=== PATIENT | female | born 1955 | race African-American/Black ===

== ENCOUNTER → 2017-06-02 | Outpatient (CLI) | payer MEDICARE, MEDICAID | END | disposition home or self-care (01) | LOC: MRI 11:41 | PROVIDERS: ATTEND Neurological Surgery | DX: M48.02 Spinal stenosis, cervical region (principal); M25.78 Osteophyte, vertebrae | CPT/HCPCS: 72141 ==

== ENCOUNTER → 2018-10-18 | Outpatient (CLI) | payer MEDICARE, MEDICAID | END | disposition home or self-care (01) | LOC: MRI 13:04 | PROVIDERS: ATTEND Neurological Surgery | DX: M48.02 Spinal stenosis, cervical region (principal); M48.061 Spinal stenosis, lumbar region without neurogenic claudication | CPT/HCPCS: 72141; 72148 ==

== ENCOUNTER → 2019-01-20 | Outpatient (CLI) | payer MEDICARE, MEDICAID | END | disposition home or self-care (01) | LOC: CT 09:43 | PROVIDERS: ATTEND Neurological Surgery | DX: M48.061 Spinal stenosis, lumbar region without neurogenic claudication (principal) | CPT/HCPCS: 72131 ==

== ENCOUNTER 2019-01-30 06:50 | Inpatient (IN) | payer MEDICARE, MEDICAID ==
[2019-01-30] VITALS (26 sets, daily range): BP systolic 76–146; BP diastolic 44–143
[~2019-01-30] VITALS: Ht 154.9 cm; Wt 67.1 kg
[2019-01-30] MEDS ORDERED: LACTATED RINGERS 1,000 ML IV SCH (07:30)
[2019-01-30] MEDS ORDERED: THROMBIN (BOVINE) 5000 UNITS/VIAL TOP ONE (07:55)
[2019-01-30] MEDS ORDERED: NORMAL SALINE 0.9% 10 ML SYR ONE (07:55)
[2019-01-30] MEDS ORDERED: LIDOCAINE HCL/EPINEPHRINE 1%-EPI 1:100,000 20 ML VIAL ONE (07:56)
[2019-01-30] MEDS ORDERED: BACITRACIN 50,000 UNITS/VIAL ONE (07:56)
[2019-01-30 08:12] LABS: CLARITY URINE CLOUDY (CLEAR); COLOR URINE YELLOW (YELLOW); KETONES URINE TRACE (NEGATIVE); LEUKOCYTE ESTERASE URINE 3+ (NEGATIVE); NITRITE URINE NEGATIVE (NEGATIVE); OCCULT BLOOD URINE 1+ (NEGATIVE); PROTEIN URINE NEGATIVE (NEGATIVE); SPECIFIC GRAVITY URINE 1.022 (1.005-1.030)
[2019-01-30 08:14] LABS: BASOPHILS % 0.4 % (0.0-2.0); EOSINOPHILS % 1.5 % (0.0-5.0); HEMATOCRIT. 39.3 % (36.0-48.0); HEMOGLOBIN. 13.4 g/dL (12.0-16.0); LYMPHOCYTES % 33.7 % (20.0-50.0); MEAN CORPUSCULAR HEMOGLOBIN 31.7 pg (28.0-32.0); MEAN PLATELET VOLUME 7.7 fl (7.4-10.4); MONOCYTES % 6.5 % (2.0-8.0); NEUTROPHILS % 57.9 % (40.0-76.0); PLATELET 395 x1000/uL (130-400); RED BLOOD CELL COUNT 4.22 mill/uL (4.2-5.4); RED CELL DISTRIBUTION WIDTH 14.7 % (11.6-14.6)
[2019-01-30 08:18] LABS: CHLORIDE 107 mEq/L (98-107)
[2019-01-30 08:19] LABS: PARTIAL THROMBOPLASTIN TIME 27.5 sec (23.4-31.0); PROTHROMBIN TIME 10.3 sec (9.6-11.0)
[2019-01-30] MEDS ORDERED: FENTANYL CITRATE/PF 50MCG/ML 2ML VIAL ONE (09:31)
[2019-01-30] MEDS ORDERED: MIDAZOLAM HCL 2 MG/2 ML VIAL ONE (09:31)
[2019-01-30] MEDS ORDERED: LIDOCAINE HCL/PF 1% 10 MG/ML 5ML VIAL ONE (09:33)
[2019-01-30] MEDS ORDERED: PROPOFOL 200MG/20ML VIAL IV ONE ×2 (09:33→12:03)
[2019-01-30] MEDS ORDERED: SUCCINYLCHOLINE CHLORIDE 200MG/10ML IV ONE (09:35)
[2019-01-30] MEDS ORDERED: ROCURONIUM BROMIDE 10MG/ML VIAL 5ML IV ONE ×2 (09:36→12:11)
[2019-01-30] MEDS ORDERED: SODIUM CHLORIDE 0.9% 10ML VIAL ONE ×2 (09:46→10:03)
[2019-01-30] MEDS ORDERED: EPHEDRINE SULFATE 50MG/ML VIAL ONE (09:46)
[2019-01-30 10:03] LABS: CLARITY URINE CLOUDY (CLEAR); COLOR URINE YELLOW (YELLOW); KETONES URINE TRACE (NEGATIVE); LEUKOCYTE ESTERASE URINE 3+ (NEGATIVE); NITRITE URINE NEGATIVE (NEGATIVE); OCCULT BLOOD URINE TRACE (NEGATIVE); PROTEIN URINE NEGATIVE (NEGATIVE); SPECIFIC GRAVITY URINE 1.015 (1.005-1.030); UROBILINOGEN URINE 0.2 E.U./dL (0.2-1.0)
[2019-01-30] MEDS ORDERED: CEFAZOLIN SODIUM 1000MG/VIAL ONE (10:03)
[2019-01-30] MEDS ORDERED: MULT-1146 PO (10:23)
[2019-01-30] MEDS ORDERED: DULO60CA44 PO (10:23)
[2019-01-30] MEDS ORDERED: HYDRALAZINE 20MG/ML VIAL IV PRN (10:45)
[2019-01-30] MEDS ORDERED: ONDANSETRON HCL 4MG/2ML INJ IV PRN (10:45)
[2019-01-30] MEDS ORDERED: DEXT 5%/LACTATED RINGERS 1,000 ML IV SCH (10:45)
[2019-01-30] MEDS ORDERED: GENTAMICIN SULF 40MG/ML 2ML VIAL ONE (12:04)
[2019-01-30] MEDS ORDERED: DEXAMETHASONE 4MG/ML 1ML VIAL ONE (12:06)
[2019-01-30] MEDS ORDERED: ONDANSETRON HCL 4MG/2ML INJ ONE (12:06)
[2019-01-30] MEDS ORDERED: GLYCOPYRROLATE 0.2 MG/ML 2ML VIAL ONE (13:34)
[2019-01-30] MEDS ORDERED: NICARDIPINE 100 MG in SODIUM CHLORIDE 0.9% 60 ML IV PRN (14:00)
[2019-01-30] MEDS ORDERED: CEFAZOLIN SODIUM 1000MG/VIAL IV SCH (14:00)
[2019-01-30] MEDS: MORPHINE SULFATE 4 MG/ML CPJ (NOT FOR IM USE) IV PRN ×2 (14:47→20:59)
[2019-01-30] MEDS ORDERED: NALOXONE INJ IV PRN (15:00)
[2019-01-30] MEDS: DEXT 5%/LACTATED RINGERS 1,000 ML IV SCH ×2 (15:00→21:25)
[2019-01-30] MEDS ORDERED: ONDANSETRON INJ IV PRN (15:00)
[2019-01-30] MEDS: HYDROMORPHONE PCA 10MG/50ML IV PRN (15:34)
[2019-01-30] MEDS ORDERED: BISACODYL 5MG TABLET PO PRN (16:30)
[2019-01-30] MEDS: CEFAZOLIN 1000MG PREMIX 50 ML IV SCH (17:17)
[2019-01-30] MEDS: DOCUSATE SODIUM 100MG CAPSULE PO SCH (17:17)
[2019-01-30] MEDS: DIPHENHYDRAMINE INJ IV PRN (18:14)
[2019-01-31] VITALS (54 sets, daily range): BP systolic 6–148; BP diastolic 6–129
[2019-01-31] MEDS: MORPHINE SULFATE 4 MG/ML CPJ (NOT FOR IM USE) IV PRN ×5 (00:01→20:55)
[2019-01-31] MEDS: CEFAZOLIN 1000MG PREMIX 50 ML IV SCH ×3 (00:02→16:04)
[2019-01-31] MEDS: DEXT 5%/LACTATED RINGERS 1,000 ML IV SCH ×3 (00:02→18:28)
[2019-01-31] MEDS: DIPHENHYDRAMINE INJ IV PRN (01:49)
[2019-01-31 05:48] LABS: BASOPHILS % 0.1 % (0.0-2.0); HEMATOCRIT. 34.7 % (36.0-48.0); HEMOGLOBIN. 11.5 g/dL (12.0-16.0); LYMPHOCYTES % 9.2 % (20.0-50.0); MEAN CORPUSCULAR HEMOGLOBIN 31.3 pg (28.0-32.0); MEAN CORPUSCULAR VOLUME 94.3 fL (81.0-99.0); MEAN PLATELET VOLUME 8.3 fl (7.4-10.4); NEUTROPHILS % 85.7 % (40.0-76.0); PLATELET 343 x1000/uL (130-400); RED BLOOD CELL COUNT 3.68 mill/uL (4.2-5.4); RED CELL DISTRIBUTION WIDTH 15.1 % (11.6-14.6)
[2019-01-31 05:53] LABS: CHLORIDE 107 mEq/L (98-107)
[2019-01-31 06:08] LABS: LDL CHOLESTEROL 155 mg/dL (5-100); PHOSPHORUS 3.6 mg/dL (2.5-4.9)
[2019-01-31 06:11] LABS: HDL CHOLESTEROL 37 mg/dL (40-59)
[2019-01-31] MEDS: ONDANSETRON HCL 4MG/2ML INJ IV PRN ×4 (09:32→20:12)
[2019-01-31] MEDS ORDERED: IPRATROPIUM/ALBUTEROL 0.5-3(2.5)MG/3ML NEB HHN PRN (09:45)
[2019-01-31] MEDS: DULOXETINE HCL 60MG DR CAPSULE PO SCH (14:20)
[2019-01-31] MEDS: DOCUSATE SODIUM 100MG CAPSULE PO SCH ×2 (14:20→17:00)
[2019-01-31] MEDS: HYDROMORPHONE PCA 10MG/50ML IV PRN (20:38)
[2019-02-01] VITALS: BP 111/55
[2019-02-01] MEDS: MORPHINE SULFATE 4 MG/ML CPJ (NOT FOR IM USE) IV PRN ×4 (01:11→15:39)
[2019-02-01] MEDS: CEFAZOLIN 1000MG PREMIX 50 ML IV SCH ×3 (01:11→16:23)
[2019-02-01] MEDS: HYDROCODONE/APAP 7.5/325MG 1 TAB TABLET PO PRN ×2 (01:12→21:03)
[2019-02-01] MEDS: ONDANSETRON HCL 4MG/2ML INJ IV PRN ×2 (01:13→21:03)
[2019-02-01 04:00] VITALS: BP 114/57
[2019-02-01 06:35] LABS: BASOPHILS % 0.3 % (0.0-2.0); EOSINOPHILS % 0.2 % (0.0-5.0); HEMATOCRIT. 30.8 % (36.0-48.0); HEMOGLOBIN. 10.3 g/dL (12.0-16.0); LYMPHOCYTES % 20.1 % (20.0-50.0); MEAN CORPUSCULAR HEMOGLOBIN 31.7 pg (28.0-32.0); MEAN CORPUSCULAR VOLUME 94.9 fL (81.0-99.0); MEAN PLATELET VOLUME 8.4 fl (7.4-10.4); MONOCYTES % 8.1 % (2.0-8.0); NEUTROPHILS % 71.3 % (40.0-76.0); PLATELET 287 x1000/uL (130-400); RED BLOOD CELL COUNT 3.25 mill/uL (4.2-5.4); RED CELL DISTRIBUTION WIDTH 14.9 % (11.6-14.6)
[2019-02-01 07:05] LABS: CHLORIDE 107 mEq/L (98-107)
[2019-02-01 08:00] VITALS: BP 118/66
[2019-02-01] MEDS: DOCUSATE SODIUM 100MG CAPSULE PO SCH ×2 (08:55→16:23)
[2019-02-01] MEDS: DULOXETINE HCL 60MG DR CAPSULE PO SCH (08:55)
[2019-02-01 12:00] VITALS: BP 122/60
[2019-02-01 16:00] VITALS: BP 101/59
[2019-02-01 20:00] VITALS: BP 125/70
[2019-02-01] MEDS: DEXT 5%/LACTATED RINGERS 1,000 ML IV SCH (21:03)
[2019-02-02] VITALS: BP 125/64
[2019-02-02] MEDS: CEFAZOLIN 1000MG PREMIX 50 ML IV SCH ×3 (00:02→15:54)
[2019-02-02] MEDS: ONDANSETRON HCL 4MG/2ML INJ IV PRN (03:03)
[2019-02-02] MEDS: HYDROCODONE/APAP 7.5/325MG 1 TAB TABLET PO PRN ×2 (03:04→16:00)
[2019-02-02 04:00] VITALS: BP 114/57
[2019-02-02] MEDS: DEXT 5%/LACTATED RINGERS 1,000 ML IV SCH (05:17)
[2019-02-02 08:00] VITALS: BP 135/78
[2019-02-02] MEDS: MORPHINE SULFATE 4 MG/ML CPJ (NOT FOR IM USE) IV PRN (08:05)
[2019-02-02] MEDS: DULOXETINE HCL 60MG DR CAPSULE PO SCH (08:42)
[2019-02-02] MEDS: DOCUSATE SODIUM 100MG CAPSULE PO SCH (08:42)
[2019-02-02] MEDS ORDERED: POLYETHYLENE GLYCOL 3350 (17GM) 1 DOSE PACK PO SCH (09:00)
[2019-02-02] MEDS: LACTULOSE 20G/30ML UDC PO SCH ×2 (09:32→15:53)
[2019-02-02 10:42] VITALS: BP 132/78
[2019-02-02 11:52] VITALS: BP 127/73
[2019-02-02 16:00] VITALS: BP 128/77
== END 2019-02-02 17:52 | DRG 453 ==
LOC: OR 06:50 → MICUNO 06:51 → 6EST 01-31 21:55
PROVIDERS: ADMIT Internal Medicine; ATTEND Neurological Surgery
PROC: 0SG0071 Fusion of Lumbar Vertebral Joint with Autologous Tissue Substitute, Posterior Approach, Posterior Column, Open Approach (ICD-10-PCS; principal; 2019-01-30)
PROC: 0SG00AJ Fusion of Lumbar Vertebral Joint with Interbody Fusion Device, Posterior Approach, Anterior Column, Open Approach (ICD-10-PCS; 2019-01-30)
PROC: 01NB0ZZ Release Lumbar Nerve, Open Approach (ICD-10-PCS; 2019-01-30)
PROC: 0ST20ZZ Resection of Lumbar Vertebral Disc, Open Approach (ICD-10-PCS; 2019-01-30)
DX: M48.061 Spinal stenosis, lumbar region without neurogenic claudication (principal); G82.50 Quadriplegia, unspecified; M47.16 Other spondylosis with myelopathy, lumbar region; N39.0 Urinary tract infection, site not specified; J98.11 Atelectasis; M43.16 Spondylolisthesis, lumbar region; F32.9 Major depressive disorder, single episode, unspecified; D64.9 Anemia, unspecified; R26.9 Unspecified abnormalities of gait and mobility; E78.5 Hyperlipidemia, unspecified; G89.4 Chronic pain syndrome; F12.90 Cannabis use, unspecified, uncomplicated; R29.6 Repeated falls; Z83.3 Family history of diabetes mellitus
CPT/HCPCS: 36415; 71046; 72100; 76000; 80048; 80061; 81003; 83036; 83735; 84100; 86850; 86900; 88304; 88311; 93005; 97116; 97162; 97166; 97530; J0330; J0690; J1100; J1170; J1200; J1580; J2250; J2270; J2405; J2704; J3010; J3490; J7121

== ENCOUNTER 2019-02-02 17:50 | Inpatient (IN) | payer MEDICARE, MEDICAID ==
[~2019-02-02] VITALS: Ht 154.9 cm; Wt 66.5 kg
[~2019-02-02 17:50] MED LIST: DULO60CA44 PO; MULT-1146 PO
[2019-02-02 20:00] VITALS: BP 120/69
[2019-02-02] MEDS ORDERED: DIPHENHYDRAMINE 50MG/ML VIAL IV PRN (22:30)
[2019-02-02] MEDS ORDERED: MORPHINE SULFATE 4 MG/ML CPJ (NOT FOR IM USE) IV PRN (22:30)
[2019-02-02] MEDS ORDERED: IPRATROPIUM/ALBUTEROL 0.5-3(2.5)MG/3ML NEB HHN PRN (22:30)
[2019-02-03] MEDS: HYDROCODONE/APAP 7.5/325MG 1 TAB TABLET PO PRN ×3 (01:27→13:35)
[2019-02-03] MEDS ORDERED: CEFAZOLIN 1000MG PREMIX 50 ML IV SCH ×2 (02:00→16:00)
[2019-02-03] MEDS: BISACODYL 5MG TABLET PO PRN (06:28)
[2019-02-03 07:41] VITALS: BP 130/79
[2019-02-03] MEDS: DULOXETINE HCL 60MG DR CAPSULE PO SCH (08:05)
[2019-02-03] MEDS: POLYETHYLENE GLYCOL 3350 (17GM) 1 DOSE PACK PO SCH (08:05)
[2019-02-03] MEDS: DOCUSATE SODIUM 100MG CAPSULE PO SCH ×2 (08:24→16:29)
[2019-02-03] MEDS ORDERED: LACTULOSE 20G/30ML UDC PO SCH (09:00)
[2019-02-03 12:29] LABS: BASOPHILS % 0.6 % (0.0-2.0); EOSINOPHILS % 0.1 % (0.0-5.0); HEMATOCRIT. 30.8 % (36.0-48.0); HEMOGLOBIN. 10.3 g/dL (12.0-16.0); LYMPHOCYTES % 17.2 % (20.0-50.0); MEAN CORPUSCULAR HEMOGLOBIN 31.2 pg (28.0-32.0); MEAN CORPUSCULAR VOLUME 93.7 fL (81.0-99.0); MONOCYTES % 8.5 % (2.0-8.0); NEUTROPHILS % 73.6 % (40.0-76.0); PLATELET 326 x1000/uL (130-400); RED BLOOD CELL COUNT 3.29 mill/uL (4.2-5.4); RED CELL DISTRIBUTION WIDTH 14.9 % (11.6-14.6)
[2019-02-03 12:41] LABS: CHLORIDE 101 mEq/L (98-107)
[2019-02-03] MEDS: CEFAZOLIN 1,000 MG in DEXTROSE 5% WATER 50 ML IV SCH ×2 (16:20→23:22)
[2019-02-03 20:00] VITALS: BP 102/72
[2019-02-03 20:12] LABS: CLARITY URINE CLEAR (CLEAR); COLOR URINE YELLOW (YELLOW); KETONES URINE 1+ (NEGATIVE); LEUKOCYTE ESTERASE URINE 1+ (NEGATIVE); NITRITE URINE NEGATIVE (NEGATIVE); OCCULT BLOOD URINE 1+ (NEGATIVE); PROTEIN URINE NEGATIVE (NEGATIVE); UROBILINOGEN URINE 0.2 E.U./dL (0.2-1.0)
[2019-02-04 07:54] VITALS: BP 134/71
[2019-02-04] MEDS: CEFAZOLIN 1,000 MG in DEXTROSE 5% WATER 50 ML IV SCH ×3 (08:03→23:13)
[2019-02-04] MEDS: DOCUSATE SODIUM 100MG CAPSULE PO SCH ×2 (08:03→16:57)
[2019-02-04] MEDS: DULOXETINE HCL 60MG DR CAPSULE PO SCH (08:03)
[2019-02-04] MEDS: POLYETHYLENE GLYCOL 3350 (17GM) 1 DOSE PACK PO SCH (08:04)
[2019-02-04] MEDS: HYDROCODONE/APAP 7.5/325MG 1 TAB TABLET PO PRN ×2 (08:04→19:48)
[2019-02-04] MEDS: ONDANSETRON HCL 4MG/2ML INJ IV PRN (08:45)
[2019-02-04 10:05] LABS: BASOPHILS % 0.5 % (0.0-2.0); EOSINOPHILS % 0.5 % (0.0-5.0); HEMATOCRIT. 33.9 % (36.0-48.0); HEMOGLOBIN. 11.4 g/dL (12.0-16.0); LYMPHOCYTES % 15.1 % (20.0-50.0); MEAN CORPUSCULAR HEMOGLOBIN 31.4 pg (28.0-32.0); MEAN CORPUSCULAR VOLUME 93.7 fL (81.0-99.0); MONOCYTES % 7.9 % (2.0-8.0); PLATELET 396 x1000/uL (130-400); RED BLOOD CELL COUNT 3.62 mill/uL (4.2-5.4); RED CELL DISTRIBUTION WIDTH 14.3 % (11.6-14.6)
[2019-02-04 10:50] LABS: FOLIC ACID (FOLATE) SERUM 11.7 ng/mL (>5.38)
[2019-02-04 12:44] LABS: CHLORIDE 99 mEq/L (98-107)
[2019-02-04 12:50] LABS: PHOSPHORUS 2.5 mg/dL (2.5-4.9)
[2019-02-04 12:55] LABS: TOTAL IRON BINDING CAPACITY 257 ug/dL (250-450)
[2019-02-04] MEDS: GABAPENTIN 100MG CAPSULE PO SCH ×2 (13:21→21:40)
[2019-02-04 20:00] VITALS: BP 139/80
[2019-02-05] MEDS: GABAPENTIN 100MG CAPSULE PO SCH (06:31)
[2019-02-05 08:00] VITALS: BP 117/55
[2019-02-05] MEDS: POLYETHYLENE GLYCOL 3350 (17GM) 1 DOSE PACK PO SCH (09:00)
[2019-02-05] MEDS: DULOXETINE HCL 60MG DR CAPSULE PO SCH (09:10)
[2019-02-05] MEDS: CEFAZOLIN 1,000 MG in DEXTROSE 5% WATER 50 ML IV SCH ×3 (09:10→23:46)
[2019-02-05] MEDS: HYDROCODONE/APAP 7.5/325MG 1 TAB TABLET PO PRN ×2 (09:11→19:22)
[2019-02-05] MEDS: DOCUSATE SODIUM 100MG CAPSULE PO SCH ×2 (09:11→17:21)
[2019-02-05] MEDS ORDERED: CYANOCOBALAMIN 1000MCG/ML VIAL IM NR (12:15)
[2019-02-05] MEDS: GABAPENTIN 300MG CAPSULE PO SCH ×2 (15:32→21:22)
[2019-02-05] MEDS: ASCORBIC ACID 500 MG TABLET PO SCH (15:33)
[2019-02-05] MEDS: FERROUS SULFATE 325MG TABLET PO SCH ×2 (15:33→17:21)
[2019-02-05 20:00] VITALS: BP 109/70
[2019-02-06] MEDS: GABAPENTIN 300MG CAPSULE PO SCH ×3 (06:00→21:51)
[2019-02-06 06:41] LABS: BASOPHILS % 0.5 % (0.0-2.0); EOSINOPHILS % 2.4 % (0.0-5.0); HEMATOCRIT. 30.6 % (36.0-48.0); HEMOGLOBIN. 10.4 g/dL (12.0-16.0); LYMPHOCYTES % 23.4 % (20.0-50.0); MEAN CORPUSCULAR HEMOGLOBIN 31.8 pg (28.0-32.0); MEAN CORPUSCULAR VOLUME 93.5 fL (81.0-99.0); MEAN PLATELET VOLUME 7.9 fl (7.4-10.4); MONOCYTES % 10.1 % (2.0-8.0); NEUTROPHILS % 63.6 % (40.0-76.0); PLATELET 428 x1000/uL (130-400); RED BLOOD CELL COUNT 3.27 mill/uL (4.2-5.4); RED CELL DISTRIBUTION WIDTH 14.6 % (11.6-14.6)
[2019-02-06 07:44] VITALS: BP 125/66
[2019-02-06] MEDS: FERROUS SULFATE 325MG TABLET PO SCH ×3 (08:09→16:19)
[2019-02-06] MEDS: CEFAZOLIN 1,000 MG in DEXTROSE 5% WATER 50 ML IV SCH ×2 (08:09→16:41)
[2019-02-06] MEDS: HYDROCODONE/APAP 7.5/325MG 1 TAB TABLET PO PRN ×2 (08:10→14:15)
[2019-02-06] MEDS: DOCUSATE SODIUM 100MG CAPSULE PO SCH ×2 (08:10→16:19)
[2019-02-06] MEDS: DULOXETINE HCL 60MG DR CAPSULE PO SCH (08:10)
[2019-02-06] MEDS: ASCORBIC ACID 500 MG TABLET PO SCH (08:10)
[2019-02-06] MEDS: POLYETHYLENE GLYCOL 3350 (17GM) 1 DOSE PACK PO SCH (08:42)
[2019-02-06] MEDS: ONDANSETRON HCL 4MG/2ML INJ IV PRN (10:05)
[2019-02-06 20:00] VITALS: BP 106/64
[2019-02-07] MEDS: HYDROCODONE/APAP 7.5/325MG 1 TAB TABLET PO PRN ×4 (02:20→18:38)
[2019-02-07] MEDS: GABAPENTIN 300MG CAPSULE PO SCH ×3 (05:10→21:52)
[2019-02-07 07:46] VITALS: BP 131/72
[2019-02-07] MEDS: DULOXETINE HCL 60MG DR CAPSULE PO SCH (08:04)
[2019-02-07] MEDS: DOCUSATE SODIUM 100MG CAPSULE PO SCH ×2 (08:04→16:29)
[2019-02-07] MEDS: POLYETHYLENE GLYCOL 3350 (17GM) 1 DOSE PACK PO SCH (08:06)
[2019-02-07 20:00] VITALS: BP 132/72
[2019-02-08] MEDS: HYDROCODONE/APAP 7.5/325MG 1 TAB TABLET PO PRN ×4 (00:06→20:43)
[2019-02-08] MEDS: GABAPENTIN 300MG CAPSULE PO SCH ×3 (06:11→21:16)
[2019-02-08 06:48] LABS: BASOPHILS % 0.7 % (0.0-2.0); EOSINOPHILS % 3.5 % (0.0-5.0); HEMATOCRIT. 29.6 % (36.0-48.0); LYMPHOCYTES % 28.8 % (20.0-50.0); MEAN CORPUSCULAR VOLUME 94.8 fL (81.0-99.0); MEAN PLATELET VOLUME 7.6 fl (7.4-10.4); PLATELET 509 x1000/uL (130-400); RED BLOOD CELL COUNT 3.13 mill/uL (4.2-5.4); RED CELL DISTRIBUTION WIDTH 14.9 % (11.6-14.6)
[2019-02-08 07:18] LABS: CHLORIDE 104 mEq/L (98-107)
[2019-02-08 07:58] VITALS: BP 147/84
[2019-02-08] MEDS: DULOXETINE HCL 60MG DR CAPSULE PO SCH (08:14)
[2019-02-08] MEDS: DOCUSATE SODIUM 100MG CAPSULE PO SCH ×2 (08:14→17:26)
[2019-02-08] MEDS: POLYETHYLENE GLYCOL 3350 (17GM) 1 DOSE PACK PO SCH (08:16)
[2019-02-08] MEDS ORDERED: NYSTATIN 100,000 UNITS/GM OINT 15GM TOP SCH (14:30)
[2019-02-08] MEDS ORDERED: SORBITOL 70% SOLN 30ML PO NR (14:45)
[2019-02-08] MEDS ORDERED: NYSTATIN/TRIAMCIN OINT 15GM TOP SCH (17:00)
[2019-02-08] MEDS: NYSTATIN/TRIAMCIN CREAM 15GM TOP SCH ×2 (17:27→21:20)
[2019-02-08 20:00] VITALS: BP 142/76
[2019-02-08] MEDS: BISACODYL 5MG TABLET PO PRN (21:17)
[2019-02-09] MEDS: GABAPENTIN 300MG CAPSULE PO SCH ×3 (06:02→21:23)
[2019-02-09] MEDS: HYDROCODONE/APAP 7.5/325MG 1 TAB TABLET PO PRN ×4 (06:11→21:24)
[2019-02-09 07:52] VITALS: BP 125/64
[2019-02-09] MEDS: POLYETHYLENE GLYCOL 3350 (17GM) 1 DOSE PACK PO SCH (08:36)
[2019-02-09] MEDS: DOCUSATE SODIUM 100MG CAPSULE PO SCH ×2 (08:36→16:35)
[2019-02-09] MEDS: NYSTATIN/TRIAMCIN CREAM 15GM TOP SCH ×2 (08:39→13:06)
[2019-02-09] MEDS: DULOXETINE HCL 60MG DR CAPSULE PO SCH (08:39)
[2019-02-09 14:18] LABS: 25-HYDROXY VITAMIN D3 13 ng/mL (.)
[2019-02-09] MEDS: NYSTATIN POWDER 15GM TOP SCH (17:39)
[2019-02-09 20:00] VITALS: BP 116/69
[2019-02-09] MEDS ORDERED: ERGOCALCIFEROL 50000UNITS CAPSULE PO SCH (21:00)
[2019-02-10] MEDS: HYDROCODONE/APAP 7.5/325MG 1 TAB TABLET PO PRN ×5 (03:50→21:49)
[2019-02-10] MEDS: GABAPENTIN 300MG CAPSULE PO SCH ×3 (05:47→21:48)
[2019-02-10 07:46] VITALS: BP 138/75
[2019-02-10] MEDS: DULOXETINE HCL 60MG DR CAPSULE PO SCH (08:10)
[2019-02-10] MEDS: DOCUSATE SODIUM 100MG CAPSULE PO SCH ×2 (08:11→16:40)
[2019-02-10] MEDS: POLYETHYLENE GLYCOL 3350 (17GM) 1 DOSE PACK PO SCH (08:11)
[2019-02-10] MEDS: NYSTATIN POWDER 15GM TOP SCH ×3 (08:12→16:39)
[2019-02-10 20:00] VITALS: BP 116/58
[2019-02-11] MEDS: HYDROCODONE/APAP 7.5/325MG 1 TAB TABLET PO PRN ×2 (05:24→11:22)
[2019-02-11] MEDS: GABAPENTIN 300MG CAPSULE PO SCH ×2 (05:24→13:12)
[2019-02-11 07:42] VITALS: BP 122/73
[2019-02-11] MEDS: POLYETHYLENE GLYCOL 3350 (17GM) 1 DOSE PACK PO SCH (08:24)
[2019-02-11] MEDS: DULOXETINE HCL 60MG DR CAPSULE PO SCH (08:24)
[2019-02-11] MEDS: DOCUSATE SODIUM 100MG CAPSULE PO SCH (08:24)
[2019-02-11] MEDS: NYSTATIN POWDER 15GM TOP SCH ×2 (08:25→13:14)
[2019-02-11] MEDS ORDERED: GABA-531 PO (09:15)
[2019-02-11] MEDS ORDERED: ATOR10TA69 MT (09:17)
[2019-02-11 10:18] VITALS: BP 122/73
[2019-02-11 11:22] VITALS: BP 124/80
== END 2019-02-11 13:30 | disposition home health service (06) | DRG 552 ==
PROVIDERS: ADMIT Physical Medicine & Rehabilitation Spinal Cord Injury Medicine; ATTEND Internal Medicine
DX: M48.061 Spinal stenosis, lumbar region without neurogenic claudication (principal); G82.20 Paraplegia, unspecified; N39.0 Urinary tract infection, site not specified; K59.2 Neurogenic bowel, not elsewhere classified; M43.16 Spondylolisthesis, lumbar region; G89.4 Chronic pain syndrome; R53.81 Other malaise; R26.9 Unspecified abnormalities of gait and mobility; R11.2 Nausea with vomiting, unspecified; E78.5 Hyperlipidemia, unspecified; E78.00 Pure hypercholesterolemia, unspecified; F32.9 Major depressive disorder, single episode, unspecified; M47.26 Other spondylosis with radiculopathy, lumbar region; N31.9 Neuromuscular dysfunction of bladder, unspecified; L30.4 Erythema intertrigo; E55.9 Vitamin D deficiency, unspecified; D50.9 Iron deficiency anemia, unspecified; F41.9 Anxiety disorder, unspecified; Z83.3 Family history of diabetes mellitus
CPT/HCPCS: 36415; 80048; 81003; 82306; 82607; 82728; 82746; 83540; 83550; 83735; 84100; 84134; 84443; 93970; 97110; 97116; 97162; 97166; 97530; 97535; 97760; C1893; J0690; J2270; J2405; J3420; J7040; J7060

== ENCOUNTER → 2019-07-27 | Outpatient (CLI) | payer MEDICARE, MEDICAID ==
[~2019-07-27] MED LIST changes: +ATOR10TA69 MT; +GABA-531 PO
== END | disposition home or self-care (01) ==
LOC: MRI 09:24
PROVIDERS: ATTEND Neurological Surgery
DX: M48.061 Spinal stenosis, lumbar region without neurogenic claudication (principal); M43.26 Fusion of spine, lumbar region
CPT/HCPCS: 72148

== ENCOUNTER → 2019-08-01 | Outpatient (CLI) | payer MEDICARE, MEDICAID | END | disposition home or self-care (01) | LOC: RAD 11:15 | PROVIDERS: ATTEND Specialist | DX: M47.817 Spondylosis without myelopathy or radiculopathy, lumbosacral region (principal); M41.85 Other forms of scoliosis, thoracolumbar region; Z98.890 Other specified postprocedural states | CPT/HCPCS: 72114 ==

== ENCOUNTER → 2019-11-09 | Outpatient (CLI) | payer MEDICARE, MEDICAID | END | disposition home or self-care (01) | LOC: RAD 10:58 | PROVIDERS: ATTEND Neurological Surgery | DX: I70.0 Atherosclerosis of aorta (principal); M85.88 Other specified disorders of bone density and structure, other site; M54.9 Dorsalgia, unspecified | CPT/HCPCS: 72114 ==